=== PATIENT | male | born 1970 | race Caucasian/White ===

== ENCOUNTER → 2018-09-22 07:06 | Outpatient (CLI) | payer BC, SELFPAY ==
--- NOTE | 2018-09-22 07:42 | MR_ITS ---
MR ankle RT wo con CLINICAL INDICATION: Recent injury with persistent pain and swelling ITS.REASON: INJURY OF RIGHT FOOT, follow-up abnormal radiograph ORDERING PHYSICIAN: Bethanie Sarabia PATIENT AGE: 48 years Comparison: 08/15/2018 TECHNIQUE: Routine multiplanar multiecho sequences are performed without contrast. FINDINGS: There is bone marrow edema within the mid and anterior aspect of the calcaneus consistent with bone bruise and possible microfracture with a minimal irregular decreased T1 signal in this area. No displaced fracture is evident. There is increased T2 signal involving the anterior and lateral process of the calcaneus at the calcaneocuboid joint with slight edema also involving the superior aspect of the cuboid at this area consistent with bone bruise. No displaced fractures are evident. There was a question of a fracture of the navicular on the radiograph. The navicular however has an unremarkable appearance. The abnormality noted on the radiograph was likely due to prominent trabeculation. There is a small amount fluid along the neck of the talus anteriorly and laterally. The anterior and posterior tibiofibular and talofibular ligaments appear intact. The deltoid ligament complex also appears intact. The Achilles tendon has an unremarkable appearance. There is some mild edema anterior to the Achilles tendon. A small amount fluid is present around the posterior tibialis, flexor digitorum longus, and flexor digitorum hallucis. The peroneal tendons have an unremarkable appearance. IMPRESSION: 1. Bone bruise with possible microfracture of the anterior aspect of the calcaneus with bone bruise of the calcaneocuboid junction superiorly. 2. No ligamentous or tendinous injury is evident. 3. There is subcutaneous edema along the lower leg with small amount fluid surrounding the posterior tibialis, flexor digitorum and flexor hallucis longus tendons which may be seen with tendinitis. Small amount of edema is also present anterior to the Achilles tendon.
== END ==
PROVIDERS: PCP Family Medicine; Visit Provider Nurse Practitioner Family
DX: S99.921A Unspecified injury of right foot, initial encounter (principal); M25.371 Other instability, right ankle
CPT/HCPCS: 73721

== ENCOUNTER → 2019-07-15 14:43 | Outpatient (CLI) | payer OTHER, SELFPAY ==
--- NOTE | 2019-07-15 14:49 | XR_ITS ---
PROCEDURE: XR LUMBAR SPINE MIN 4V CLINICAL INDICATION: Acute RT LBP WITH SCIATICA Right low back pain COMPARISON: No exams were available for comparison FINDINGS: There is minimal thoracolumbar curvature convex right. No fracture or dislocation is evident. Small anterior osteophytes are and there is mild degenerative disc disease at L1-L2. Incidental vascular calcification is noted. Is mild loss of height anteriorly L1 which may be chronic. IMPRESSION: Mild degenerative changes, no acute finding Dictated by: Kyle Ghosh MD 07/15/2019 17:03 Electronically signed by Kyle Ghosh MD in [place] 07/15/2019 17:03
== END ==
PROVIDERS: PCP Nurse Practitioner Family; Visit Provider Nurse Practitioner Family
DX: M54.41 Lumbago with sciatica, right side (principal)
CPT/HCPCS: 72110

== ENCOUNTER → 2019-07-25 13:49 | Outpatient (CLI) | payer OTHER, SELFPAY ==
--- NOTE | 2019-07-25 13:53 | XR_ITS ---
PROCEDURE: XR HIP RT 2-3V W/PELVIS CLINICAL INDICATION: RT HIP PAIN COMPARISON: No exams were available for comparison FINDINGS: No fracture or dislocation is evident. No significant degenerative change. No lytic or blastic change. Unremarkable soft tissues. IMPRESSION: Negative right hip Dictated by: Kyle Ghosh MD 07/25/2019 14:13 Electronically signed by Kyle Ghosh MD in [facility] 07/25/2019 14:13
== END ==
PROVIDERS: PCP Nurse Practitioner Family; Visit Provider Nurse Practitioner Family
DX: M25.551 Pain in right hip (principal)
CPT/HCPCS: 73502

== ENCOUNTER 2020-02-07 05:47 | Emergency (ER) | payer BC, MEDICAID, SELFPAY ==
[2020-02-07 05:56] VITALS: BP 164/99; PULSE 68; RESP 16; TEMP 36.6; O2SAT 98; BMI 25.3
[2020-02-07 05:58] VITALS: BMI 23.1
[2020-02-07 06:24] LABS: Basophils % 0.4 % (0.1-2.0); Eosinophils # 0.2 K/mm3 (0.0-0.4); Eosinophils % 1.8 % (0.1-12.0); Hematocrit 52.7 % (42.0-52.0); Hemoglobin 17.7 g/dL (14.1-18.0); Lymphocytes # 2.3 K/mm3 (0.7-4.5); Lymphocytes % 21.7 % (10-50); Mean Corpuscular HGB Conc 33.6 g/dL (31.8-35.4); Mean Corpuscular Volume 95.1 fl (80-94); Mean Platelet Volume 8.2 fl (7.4-10.4); Monocytes # 0.8 K/mm3 (0.1-1.0); Monocytes % 7.2 % (1.7-9.3); Neutrophils # 7.2 K/mm3 (1.8-7.8); Neutrophils % 68.9 % (37.0-80.0); Platelet Count 203 K/mm3 (142-424); Red Blood Count 5.55 M/mm3 (4.60-6.20); Red Cell Distribution Width 13.7 % (11.5-17.5); White Blood Count 10.5 K/mm3 (4.8-10.8)
[2020-02-07 06:29] LABS: Chloride 106 mmol/L (98-107); Potassium 3.5 mmoL/L (3.5-5.1); Sodium 138 mmol/L (136-145)
[2020-02-07 06:31] LABS: Blood Urea Nitrogen 15 mg/dl (9-20); Creatinine Clearance Estimated 110 mL/min (50-200); Estimated Glomerular Filt Rate 89 ml/min (>60); GFR (African American) 108 ML/MIN (>60)
[2020-02-07 06:32] LABS: Alanine Aminotransferase 27 U/L (12-78); Albumin Level 4.3 g/dl (3.5-5.0); Albumin/Globulin Ratio 1.3 (1.1-1.8); Alkaline Phosphatase 81 U/L (38-126); Anion Gap 12.5 mEq/L (5-15); Aspartate Amino Transferase 34 U/L (17-59); Bilirubin,Total 0.7 mg/dl (0.2-1.3); Calcium 9.1 mg/dl (8.4-10.2); Carbon Dioxide 23 mmol/L (22.0-30.0); Globulin 3.2 g/dL (1.3-3.2); Glucose 119 mg/dl (74-100); Total Protein,Serum 7.5 g/dl (6.3-8.2)
[2020-02-07 06:45] VITALS: BP 179/106; PULSE 67; O2SAT 98
--- NOTE | 2020-02-07 06:53 | HMH.EDALLER ---
ED Disposition Clinical Impression: Allergic reaction Qualifiers: Encounter type: initial encounter Qualified Code(s): T78.40XA - Allergy, unspecified, initial encounter Disposition: Home, Self-Care Condition on Discharge: Good Instructions: DI for General Allergic Reactions Additional Instructions: use meds and see pcp for nathan kumar Prescriptions: predniSONE [Prednisone 20mg Tab] 20 mg PO BID #10 tab Transmission Status: Pending to [facility] #[id number] Referrals: Bethanie Sarabia APRN [Primary Care Provider] - - Critical Care Critical Care Time: No Attestation: On 02/07/20, the high probability of a clinically significant, sudden or life threatening deterioration of the following system(s) required my full and direct attention, intervention and personal management. The time I documented below is in addition to time spent performing reported procedures but includes the following listed in this critical care notation. Medical Decision Making - Medical Records Medical records reviewed: Yes: I reviewed the patient's medical records. - Naldo Inquiry Pt receiving controlled substance: No Vital Signs: 02/07/20 05:56 02/07/20 06:45 Temperature 97.8 F Temperature Source Oral Pulse Rate [Right Brachial] 68 67 Respiratory Rate 16 Blood Pressure [Right Arm] 164/99 H 179/106 H Blood Pressure Mean [Right Arm] 120 130 Blood Pressure Source [Right Arm] Automatic Cuff Automatic Cuff Blood Pressure Position [Right Arm] Sitting Sitting 02 Sat by Pulse Oximetry 98 98 Oxygen Delivery Method Room Air - Lab Data Lab results reviewed: Yes: I reviewed the patient's lab results. Lab Results 02/07/20 06:02: WBC 10.5, RBC 5.55, Hgb 17.7, Hct 52.7 H, MCV 95.1 H, MCH 32.0 H, MCHC 33.6, RDW 13.7, Plt Count 203, MPV 8.2, Neut % (Auto) 68.9, Lymph % (Auto) 21.7, [place] % (Auto) 7.2, Eos % (Auto) 1.8, Baso % (Auto) 0.4, Neut # (Auto) 7.2, Lymph # (Auto) 2.3, [place] # (Auto) 0.8, Eos # (Auto) 0.2, Baso # (Auto) 0.0 02/07/20 06:02: Sodium 138, Potassium 3.5, Chloride 106, Carbon Dioxide 23, Anion Gap 12.5, BUN 15, Creatinine 0.90, Estimated Creat Clear 110, Estimated GFR 89, Est GFR ( Amer) 108, Glucose 119 H, Calcium 9.1, Total Bilirubin 0.7, AST 34, ALT 27, Alkaline Phosphatase 81, Total Protein 7.5, Albumin 4.3, Globulin 3.2, Albumin/Globulin Ratio 1.3 Result diagrams: 02/07/20 06:02 02/07/20 06:02 Orders (Tests/Meds): ED MEDICATIONS Generic Name Dose Route Start Last Admin Trade Name Freq PRN Reason Stop Dose Admin Sodium Chloride 8 ml 02/07/20 05:59 Sodium Chloride 0.9% 10ml Vial IV 03/08/20 05:58 NEEDED PRN dilute pepcid Discontinued Medications Generic Name Dose Route Start Last Admin Trade Name Freq PRN Reason Stop Dose Admin Diphenhydramine HCl 50 mg 02/07/20 05:59 02/07/20 06:14 Benadryl 50mg/1ml Vial IV 02/07/20 06:00 50 mg ONCE ONE Administration Famotidine 20 mg 02/07/20 05:59 02/07/20 06:14 Pepcid 20mg/2ml Vial IV 02/07/20 06:00 20 mg ONCE ONE Administration Methylprednisolone Sodium Succinate 125 mg 02/07/20 05:59 02/07/20 06:14 Solu-Medrol 125mg/2ml Vial IV 02/07/20 06:00 125 mg ONCE ONE Administration Allergic React/Insect Bite HPI - General Chief complaint: Allergic Reaction Stated complaint: Both hands swollen Time Seen by Provider: 02/07/20 06:25 Mode of Arrival - ED Triage: Ambulatory Source of Information: Patient, Medical Record Limitations: No Limitations - History of Present Illness HPI narrative: bilat hand swellling with assoc itching after using tree spikes - no other c/o MD complaint: allergic reaction Onset (ago): hour(s) Symptoms: itching, other (hand swelling ) Treatment prior to arrival: none Allergies/Adverse Reactions: Allergies Allergy/AdvReac Type Severity Reaction Status Date / Time lisinopril Allergy Verified 08/25/18 12:12 Previous Allergic Reaction History: none Severity
[2020-02-07 07:12] VITALS: BP 179/95; PULSE 67; RESP 17; TEMP 36.6; O2SAT 99
== END 2020-02-07 07:15 | disposition home or self-care (01) ==
PROVIDERS: Emergency Provider Emergency Medicine; PCP Nurse Practitioner Family
DX: T78.40XA Allergy, unspecified, initial encounter (principal); F17.210 Nicotine dependence, cigarettes, uncomplicated; Z88.8 Allergy status to other drugs, medicaments and biological substances
CPT/HCPCS: 80053; 85025; 96374; 96375; 99283